=== PATIENT | female | born 1990 | race Caucasian/White ===

== ENCOUNTER 2017-02-20 11:41 | Emergency (ER) | payer SELFPAY ==
[~2017-02-20] VITALS: Ht 180.3 cm; Wt 87.0 kg
[~2017-02-20 11:41] MED LIST: CIPR500T4 PO; CLIN150 PO
[2017-02-20 11:48] VITALS: BP 106/61; PULSE 64; RESP 16; TEMP 98.4; O2SAT 97
[2017-02-20] MEDS ORDERED: ALEV220T14 PO (12:01)
[2017-02-20] MEDS ORDERED: BACT800T5 PO (12:52)
--- NOTE | 2017-02-20 12:53 | PD ---
HPI Chief Complaint: Skin Problem Time Seen by Provider: 12:46 Travel History International Travel<30 days: No Contact w/Intl Traveler<30days: No Traveled to known affect area: No History of Present Illness HPI 27-year-old female here with left index finger pain. She has what appears to be a cyst. She reports the area has been present for 6 months. She reports it was the result of a cat bite. She reports it recently became painful which prompted her visit today. She has full range of motion. She denies fever or chills. Severity moderate. PFSH Past Medical History Medical History: Denies Significant Hx Tetanus Vaccination: < 5 Years Influenza Vaccination: No ?: Not LMP: NOW Past Surgical History Surgical History: No Previous Surgery Social History Alcohol Use: Yes (occasionally) Tobacco Use: Yes (1/2 ppd) Substance Use: Yes (marijuana) Allergies-Medications (Allergen,Severity, Reaction): Coded Allergies: No Known Allergies (Verified Allergy, Unknown, 02/20/17) Reported Meds & Prescriptions Reported Meds & Active Scripts Active Bactrim DS (Sulfamethoxazole-Trimethoprim) 800-160 Mg Tab 1 Tab PO BID Reported Aleve Arthritis (Naproxen Sodium) 220 Mg Tab 220 Mg PO BID Review of Systems Except as stated in HPI: all other systems reviewed are Neg General / Constitutional: No: Fever Physical Exam Narrative GENERAL: Alert well-appearing female. SKIN: Warm and dry. Small soft fluctuant mass left index finger. HEAD: Normocephalic. EYES: No injection or drainage. CARDIOVASCULAR: Regular rate and rhythm RESPIRATORY: Breath sounds equal bilaterally. No accessory muscle use. MUSCULOSKELETAL: No cyanosis, or edema. Left hand: Tender Small soft fluctuant mass left index finger. Mild erythema. Reported pain with flexion of the finger. Brisk cap Refill. Data Data Last Documented VS Vital Signs Date Time Temp Pulse Resp B/P (MAP) Pulse Ox O2 Delivery O2 Flow Rate FiO2 02/20/17 11:48 98.4 64 16 106/61 (76) 97 Orders Orders Ed Discharge Order (02/20/17 12:53) MDM Medical Decision Making Medical Screen Exam Complete: Yes Emergency Medical Condition: Yes Differential Diagnosis Abscess, cellulitis, URI Narrative Course 27-year-old female here with left index finger pain. She has what appears to be a cyst. She reports the area has been present for 6 months. She reports it was the result of a cat bite. She reports it recently became a painful which prompted her visit today. She has a 0.5CM circular soft lesion to the distal volar aspect of the digit. Small incision was made with no purulent drainage expressed. I believe this is cyst. She'll be referred to hand surgeon for removal. Procedures Procedure Narrative INCISION AND DRAINAGE OF ABSCESS: The area was prepped and was sterilely draped. A subcutaneous wheal of 1 % Xylocaine used to anesthetize the area properly. A number 11 scalpel was used to make a 0.25 -cm incision across the area of the abscess. No purulent drainage expressed. Sterile dressing applied. Diagnosis Primary Impression: Abscess Additional Impression: URI (upper respiratory infection) Qualified Codes: J06.9 - Acute upper respiratory infection, unspecified; B97.89 - Other viral agents as the cause of diseases classified elsewhere Referrals: [facility] Hand Surgeon Primary Care Physician Additional Instructions: Cleansed the area daily with soap and water. Take the antibiotics as prescribed. Follow-up the the clinic. Return if he developed new or worsening symptoms. Scripts Sulfamethoxazole-Trimethoprim (Bactrim DS) 800-160 Mg Tab 1 TAB PO BID for Infection, #20 TAB 0 Refills Prov: Bonita Bah 02/20/17 Disposition: 01 DISCHARGE HOME Condition: Stable Bonita Bah Feb 20, 2017 12:53
== END 2017-02-20 13:01 | disposition home or self-care (01) ==
LOC: PHEFT 11:41
DX: L02.512 Cutaneous abscess of left hand (principal); J06.9 Acute upper respiratory infection, unspecified; F17.200 Nicotine dependence, unspecified, uncomplicated
CPT/HCPCS: 10060